=== PATIENT | female | born 1965 | race African-American/Black ===

== ENCOUNTER 2021-12-04 08:26 | Emergency (ER) | payer BC ==
[2021-12-04] MEDS ORDERED: fentaNYL 100 MCG/2 ML SDV IM ONE (09:06)
== END 2021-12-04 10:36 | disposition home or self-care (01) ==
LOC: JP.ED 08:26
DX: S93.402A Sprain of unspecified ligament of left ankle, initial encounter (principal); S30.0XXA Contusion of lower back and pelvis, initial encounter; X50.9XXA Other and unspecified overexertion or strenuous movements or postures, initial encounter
CPT/HCPCS: 72220; 72220-26; 73610-26-LT; 73610-LT; 96372; 99282; 99283-25; J3010